=== PATIENT | male | born 1995 | race Caucasian/White ===

== ENCOUNTER 2021-10-05 19:30 | Emergency (ER) | payer BC, MEDICAID, SELFPAY ==
[2021-10-05 19:47] VITALS: BP 121/87; PULSE 86; RESP 16; TEMP 36.7; O2SAT 99; BMI 25.0
--- NOTE | 2021-10-05 20:03 | W.ED.BURNSMK ---
HPI - Burn/Smoke Inhalation General: Chief complaint: Burn/Smoke Inhalation Stated complaint: Burn to left leg Time Seen by Provider: 10/05/21 19:58 History of Present Illness: 26-year-old female comes in today for concerns of a burn to the left lower extremity. On exam patient has a 4 cm circular burn to the left calf. There is a area of redness surrounding the burn approximately 3 cm. Patient does not recall her last tetanus shot. Patient reports some body aches but no fever. Associated symptoms: Reports nausea; Deny vomiting Review of Systems General: Reports: 10 or more systems reviewed and unremarkable except in HPI and below GI: Reports: nausea; Denies: vomiting Skin/Breast: Reports: new lesions [facility] PFSH: Medical History (Updated 10/05/21 @ 20:08 by SAIRA Galindo) Psychiatric care PTSD (post-traumatic stress disorder) Surgical History No history of previous surgery Family History Mother History of hysterectomy for indication other than cancer Grandfather Cancer pancreatic Sister Autism Social History Smoking and tobacco status: never smoked Alcohol intake: current Alcohol intake frequency: holidays/special occasions only Alcohol type: wine Household members: none Marital status: Single Current occupational status: employed Current gender identity: Female Physical Exam Const: COMMON NORMALS: alert HENMT: COMMON NORMALS: atraumatic HEAD & SCALP: atraumatic Neck/C-Spine: COMMON NORMALS: full ROM Resp: COMMON NORMALS: normal respiratory effort and clear to auscultation bilaterally AUSCULTATION: clear to auscultation bilaterally Cardio: COMMON NORMALS: regular rate RATE: regular rate Extremity: LEFT LOWER EXTREMITY: Yes lower leg (4 cm ovoid blistered burn noted with 3 cm of surrounding redness) Left lower leg: Yes inspection, Yes palpation and Yes neurovascular exam Neuro: SENSORIUM/ORIENTATION: Yes alert Skin: TRAUMA: other (Blistered lesion to the left lower extremity with surrounding redness) Course Vital Signs: Vital signs: Vital Signs Temperature 98.0 F 10/05/21 19:47 Pulse Rate 86 10/05/21 19:47 Respiratory Rate 16 10/05/21 19:47 Blood Pressure 121/87 10/05/21 19:47 Pulse Oximetry 99 10/05/21 19:47 Oxygen Delivery Me thod 10/05/21 19:47 MDM - Burn/Smoke Inhalation Medical Decision Making Patient comes in for evaluation of a burn that occurred approximately 2 days ago. On exam there is some redness surrounding the blistered lesion. Suspect differential diagnosis includes cellulitis, infected wound, second-degree burn, need for prophylaxis tetanus. Tetanus was updated. Patient was placed on cephalexin. Patient was placed on bacitracin ointment. Reviewed care and recommendations with patient with understanding of plan. Discharge Plan Discharge Patient Disposition: Home Clinical Impression: Second degree burn of left lower extremity Qualifiers: Encounter type: initial encounter Qualified Code(s): T24.202A - Burn of second degree of unspecified site of left lower limb, except ankle and foot, initial encounter Condition: Stable Prescriptions: New bacitracin 500 unit/gram ointment 1 applic topical DAILY Qty: 28 0RF Rx Instructions: with daily dressing change cephalexin 500 mg capsule 500 mg PO BID 7 Days Qty: 14 0RF ibuprofen 600 mg tablet 600 mg PO Q6H PRN (Reason: fever or pain) Qty: 30 0RF No Action sertraline [Zoloft] 25 mg tablet 25 mg PO BID Qty: 60 3RF Rx Instructions: one in am and at supper. aripiprazole [Abilify] 5 mg tablet 5 mg PO DAILY Qty: 30 3RF multivitamin Tablet 1 tab PO DAILY Probiotic with Prebiotic 1 billion-250 cell-mg capsule 2 cap PO drospirenone-ethinyl estradiol 3-0.02 mg tablet 1 tab PO DAILY Discharge Orders: Discharge ED (Routine); Ordered 10/05/21 Ordered By: Yoandy Bui Referrals: Bela Salgado MD [Primary Care Provider] - Discharge Diet: Usual diet Discharge Activity: Increase activity as tolerated Patient Instructions: Second-Degree Burn (ED) Activity Restrictions/Additional Instructions: Keep wound clean and dry. You can wash the wound twice a day with mild soap and water and apply antibiotic ointment and cover. Use acetaminophen and ibuprofen for pain. Take oral antibiotic 1 capsule twice a day for 7 days. Follow-up with primary care in 1 week for recheck. Return to ER for new concerns such as increased redness and swelling of the extremity, and fever greater than 100.4. Coding Level of Care Code ED Gis Developer for Dena Block
[2021-10-05] MEDS: tetanus-dipt-pertussis 0.5 mL SDV IM (20:27)
[2021-10-05] MEDS: cephALEXin 500 mg Capsule PO (20:27)
[2021-10-05] MEDS: bacitracin ointment Pkt 1 EACH TOPICAL (20:27)
[2021-10-05] MEDS: ibuprofen 600 mg Tablet PO (20:27)
== END 2021-10-05 20:42 | disposition home or self-care (01) ==
PROVIDERS: Emergency Provider Nurse Practitioner Family; PCP Family Medicine
DX: T24.002A Burn of unspecified degree of unspecified site of left lower limb, except ankle and foot, initial encounter (principal); X58.XXXA Exposure to other specified factors, initial encounter; Z23 Encounter for immunization
CPT/HCPCS: 90471; 90715; 99283

== ENCOUNTER → 2021-10-13 13:23 | Outpatient (BNVA) | payer BC, MEDICAID, SELFPAY | PROVIDERS: PCP Family Medicine; Visit Provider Family Medicine | DX: R20.2 Paresthesia of skin (principal); R53.83 Other fatigue | CPT/HCPCS: 80053; 82306; 82607; 83540; 84443; 85025 ==